=== PATIENT | male | born 2000 | race Caucasian/White ===

== ENCOUNTER 2018-02-06 23:30 | Emergency (ER) | payer MEDICAID ==
[2018-02-07] MEDS: DIPHTH/TET/ACEL PERTUSS (ADULT) 0.5 ML VIAL IM* (02:31)
[2018-02-07] MEDS: SILVER SULFADIAZINE 1% 25 GM CR TOP (02:31)
== END 2018-02-07 02:58 | disposition home or self-care (01) ==
LOC: FTE 23:30
DX: T22.211A Burn of second degree of right forearm, initial encounter (principal); X19.XXXA Contact with other heat and hot substances, initial encounter; Y92.89 Other specified places as the place of occurrence of the external cause; Z23 Encounter for immunization
CPT/HCPCS: 16020; 90471; 90715; 99283-25